=== PATIENT | female | born 1980 | race Caucasian/White ===

== ENCOUNTER 2019-09-12 15:30 | Emergency (ER) | payer MEDICAID, SELFPAY ==
[2019-09-12] VITALS (27 sets, daily range): BP systolic 98–136; BP diastolic 45–80; PULSE 66–107; RESP 12–24; TEMP 36.8–37.5; O2SAT 95–99
--- NOTE | 2019-09-12 15:46 | ED.GENADUL_ITS ---
Discharge Plan Disposition Patient Disposition: HOME Condition: Stable Discharge Details Chief Complaint: Allergic Clinical Impression: Medication side effect, Burning chest pain Primary Care Provider: Aayush Coker ED Provider: Christian Espinoza Home Meds and New Rx's Prescriptions: Continued meclizine 25 mg Tablet 25 mg PO BID PRNRF: 0 magnesium 250 mg Tablet 250 mg PO DAILY RF: 0 Discharge Instructions Instructions: Chest Pain (ED) Additional Instructions: follow up with your primary care provider or specialist within one week if you have severe worsening pain, rash, or difficulty breathing return to the emergency department for reevaluation Medical Decision Making 39 yo female who has been receiving iron infusions for iron deficiency comes in with chest burning. She was getting her second infusion today and states during the first time she did have chest and throat burning. Today it recurred and she told the staff who treated it as an allergic reaction with benadryl, h2 blockers, and steroids. She states the burning has improved but still has some in her throat. No rashes or dyspnea or abd pain/n/v. She arrives in no distress with stable vitals signs. Pain doesn't radiate, no diaphoresis, no n/v. Unclear if this was truly an allergic reaction vs side effect, but given the chest burning will obtain ecg and troponin, heart score is 1. no hypoxia or tachycardia or evidence of PE so doubt Pe and wells score is low with negative PERC. No tearing back pain and normal vascular exam so doubt dissection and has no pleuritic pain cough or fevers so doubt pna or ptx ptremains stable with just chest burning no other symptoms. Labs show no acute findings, states h/h chronically low and last she states it was 9. Will continue to monitor here and obtain delta troponin she remains hd stable, still has burning sensation of chest, repeat troponin negative. Feel she is stable for d/c, advised discussing premedication next infusion with her plastic roller and return precautions given Differential Diagnosis Differential Diagnosis: allergic reaction, acs, gerd, gastritis Lab Data Lab results reviewed: Yes I reviewed the patient's lab results. ECG Data Attestation: I personally reviewed and interpreted this ECG (s) as follows: Prior ECG tracings: not available for review Interpretation: sinus rhythm, rate of 80, pr 158, no acute st t wave ischemic findings HPI General Mode of arrival: EMS . Date/Time Provider Initiated Documentation: 09/12/19 15:40 . Limitations to Documentation: no limitations . Information obtained by: patient . History of Present Illness 39 year old F presents to the emergency department with the chief complaint of chest burning, described as moderate, Patient started experiencing this hour(s) (1) No relieving factors improve symptom(s), No exacerbating factors reported . Patient did receive the following treatments prior to arrival, none Related Data Home Medications Medication Instructions Recorded Confirmed magnesium 250 mg PO DAILY 09/12/19 09/12/19 meclizine 25 mg PO BID PRN 09/12/19 09/12/19 Allergies Allergy/AdvReac Type Severity Reaction Status Date / Time morphine Allergy Unverified 09/12/19 15:45 Penicillins Allergy Unverified 09/12/19 15:45 Sulfa (Sulfonamide Allergy Unverified 09/12/19 15:45 Antibiotics) vancomycin Allergy Unverified 09/12/19 15:45 General Stated Complaint: Allergic KELLY: 3 Review of Systems Review of Systems ROS Unobtainable: All systems reviewed & are unremarkable except as noted in HPI and below Constitutional Constitutional: Denies chills, Denies fever(s) and Denies weakness Cardiovascular Cardiovascular: Denies dyspnea Respiratory Respiratory: Denies cough and Denies dyspnea Gastrointestinal Gastrointestinal: Denies abdominal pain, Denies nausea and Denies vomiting Musculoskeletal Musculoskeletal: Denies joint swelling Neurologic Neurologic: Denies weakness [facility] Social History Smoking/Tobacco Use Status: Never Alcohol Intake: never Drug use: Never Substance use type: does not use Do you feel safe at home: Yes Do you feel safe in your relationship?: Yes Exam Const General: no acute distress Orientation: alert HENMT Head: normal to inspection Ears: external ears normal General nose exam: external nose normal Mouth: moist mucous membranes Eyes General: appearance normal, both eyes and all related structures Neck Neck: normal visual inspection Resp Effort & Inspection: normal respiratory effort and able to speak in complete sentences Cardio Rate: regular rate Skin General skin exam: no rashes or lesions noted Neuro General: alert and oriented x3 Extrem General: normal to inspection Psych Mental Status: mental status grossly normal Course Vital Signs Vital signs: Vital Signs Temperature 37.5 C 09/12/19 15:37 Pulse 82 09/12/19 15:37 Respiratory Rate 14 09/12/19 15:37 Blood Pressure 131/62 09/12/19 15:37 Pulse Oximetry 98 09/12/19 15:37 Temperature 37.5 C 09/12/19 15:37 Temperature Source Temporal Artery Scan 09/12/19 15:37 Pulse 82 09/12/19 15:37 Respiratory Rate 14 09/12/19 15:37 Blood Pressure 131/62 09/12/19 15:37 Blood Pressure Position Supine 09/12/19 15:37 Pulse Oximetry 98 09/12/19 15:37 Oxygen Delivery Method Room Air 09/12/19 15:37 Oxygen Flow Rate 0 09/12/19 15:37 Pain Level 0 09/12/19 15:37
[2019-09-12 16:12] LABS: Abs Immature Grans 0.01 k/cumm (0.0-0.09); Absolute Basophil Count 0.01 k/cumm (0.0-0.2); Absolute Eosinophil Count 0.07 k/cumm (0.0-0.7); Absolute Lymphocyte Count 1.27 k/cumm (1.2-3.4); Absolute Monocyte Count 0.25 k/cumm (0.11-0.7); Absolute Neutrophil Count 4.84 k/cumm (1.2-6.7); Basophils % 0.2; Eosinophils % 1.1; HCT 32.4 % (36.0-46.0); HGB 9.7 g/dL (12.0-15.5); Immature Grans % 0.2; Lymphocytes % 19.7; Mean Corp. HGB Concentration 29.9 g/dL (32.0-36.0); Mean Corpuscular Hemoglobin 20.3 pg (27.0-33.0); Mean Corpuscular Volume 67.8 fL (80-95); Mean Platelet Volume 8.6 fL (8.0-11.0); Monocytes % 3.9; Neutrophils % 74.9; Platelet Count 283 x1000/uL (130-400); RBC 4.78 m/cumm (4.00-5.20); RBC Distribution Width 19.7 % (11.7-14.6); White Blood Cell Count 6.45 k/cumm (4.4-10.8)
[2019-09-12 16:17] LABS: INR 1.1 (0.9-1.1); PTT Activated 24.7 sec (21.0-31.4)
[2019-09-12 16:24] LABS: ALT 20 U/L (14-59); AST 14 U/L (15-37); Albumin 3.5 g/dL (3.4-5.0); Alkaline Phosphatase 70 U/L (46-116); Anion Gap 11.1 mmol/L (3-11); BUN 14 mg/dL (7-18); Bilirubin, Total 0.3 mg/dL (0.2-1.0); CO2 24.9 mmol/L (21.0-32.0); CREATININE 0.57 mg/dL (0.55-1.02); Calcium 8.5 mg/dL (8.5-10.1); Chloride 107 mmol/L (98-107); Glucose 88 mg/dL (70-100); Magnesium 1.7 mg/dL (1.8-2.4); Potassium 3.4 mmol/L (3.5-5.1); Sodium 143 mmol/L (136-145); Total Protein 7.3 g/dL (6.4-8.2)
[2019-09-12 16:27] LABS: HCG Qual (Serum) Negative; Troponin I < 0.05 ng/mL (0.00-0.06)
[2019-09-12 16:41] LABS: Anisocytosis 2+; Diff Comment RBC Morph Reviewed; Hypochromasia 2+; Microcytosis 3+
[2019-09-12 19:14] LABS: Troponin I < 0.05 ng/mL (0.00-0.06)
== END 2019-09-12 19:45 | disposition home or self-care (01) ==
PROVIDERS: Emergency Provider Emergency Medicine; PCP Neuromusculoskeletal Medicine & OMM
DX: R07.89 Other chest pain (principal); T45.4X5A Adverse effect of iron and its compounds, initial encounter
CPT/HCPCS: 36415; 80053; 93005; 99284; 83735; 84484; 84703; 85025; 85610; 85730; 93010